=== PATIENT | male | born 1980 | race Caucasian/White ===

== ENCOUNTER 2017-06-15 02:33 | Emergency (ER) | payer OTHER ==
[~2017-06-15] VITALS: Ht 182.9 cm; Wt 124.7 kg
[2017-06-15] MEDS ORDERED: ACCUNEB SO1.25 MG/1 (02:40)
[2017-06-15 03:18] VITALS: BP 134/85
== END 2017-06-15 03:20 | disposition home or self-care (01) ==
LOC: M.ERS 02:33
DX: J45.901 Unspecified asthma with (acute) exacerbation (principal); Z88.5 Allergy status to narcotic agent